=== PATIENT | male | born 1985 | race Caucasian/White ===

== ENCOUNTER 2022-08-30 14:02 | Outpatient (CLI) | payer BC, SELFPAY ==
[2022-08-30 17:42] LABS: Cholesterol* 221 mg/dL (90-199); Glucose* 87 mg/dL (60-115)
[2022-08-30 17:43] LABS: HDL Cholesterol* 44 mg/dL (>=40); LDL Cholesterol Calculated 126 mg/dL (<100); Triglycerides* 255 mg/dL (40-149)
== END 2022-08-30 14:03 | disposition home or self-care (01) ==
PROVIDERS: PCP Family Medicine; Visit Provider Family Medicine
DX: Z00.00 Encounter for general adult medical examination without abnormal findings (principal); Z13.1 Encounter for screening for diabetes mellitus; Z13.6 Encounter for screening for cardiovascular disorders
CPT/HCPCS: 80061; 82947

== ENCOUNTER 2024-08-28 18:40 | Emergency (ER) | payer BC, SELFPAY ==
[2024-08-28 18:43] VITALS: BP 119/76; PULSE 98; RESP 18; TEMP 40.5; O2SAT 97; BMI 21.9
[2024-08-28] MEDS: dexAMETHasone 10 MG/ML inj PO (19:32)
[2024-08-28 19:34] LABS: Basophils Percent Auto 0.1 % (0.0-3.0); Eosinophils Percent Auto 0.1 % (0.0-7.0); Hematocrit 36.9 % (37.0-53.0); Hemoglobin* 12.6 gm/dL (13.5-17.5); Immature Granulocytes Pct Auto 0.1 %; Lymphocytes Percent Auto 3.5 % (20-44); Mean Corpuscular HGB Conc 34 gm/dL (32-36); Mean Corpuscular Hemoglobin 31 pg (26-34); Mean Corpuscular Volume 89 fL (80-100); Monocytes Percent Auto 7.5 % (0.0-11.0); Neutrophils Percent Auto 88.7 % (42.0-72.0); Platelet Count* 157 K/uL (140-440); RDW Coefficient of Variation % 13.2 % (11.5-15.5); Red Blood Count 4.13 m/uL (4.30-5.90); White Blood Count* 14.45 K/uL (4.50-11.00)
[2024-08-28 19:38] LABS: Slide Review Reflex No
[2024-08-28 19:40] VITALS: TEMP 37.4
--- NOTE | 2024-08-28 19:53 | ED_ITS ---
HPI - General Adult General Date Seen: 08/28/24 Chief complaint: Sore Throat Stated complaint: fever for more than 48 hrs, tonsils whit and green Time Seen by Provider: 08/28/24 19:03 Source: patient Mode of arrival: ambulatory Limitations: no limitations History of Present Illness HPI narrative: Patient is a 39-year-old male presenting to emergency department for fever, sore throat has been going on for the past 2 days. He states he went to urgent care yesterday in test negative for strep, mono, COVID/flu. Symptoms are persisting and states fever has been constant since then. Have about a 3 hour span were for the fever broke. Is feeling very fatigued states his throat is very sore. States sometimes it feels like his throat was swelling up and it becomes hard to breathe. Currently is not feeling any dyspnea. Denies chest pain. Does not feel like he has shortness of breath within his lungs. Has been coughing up a dark mucus. Also states his notice some white spots on his tonsils. Denies lightheadedness, dizziness, abdominal pain. No other concerns noted. Does state he had a co-worker that had similar symptoms that lasted for a few days but then quickly got better after she was started on antibiotics. Unsure which she was diagnosed with. 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 Related Data Home Medications ?Medication ?Instructions ?Recorded ?Confirmed No Known Home Medications 08/28/24 08/28/24 Allergies Allergy/AdvReac Type Severity Reaction Status Date / Time hydromorphone Allergy Intermediate itchy Verified 08/28/24 18:48 amoxicillin Allergy Unknown nausea, Verified 08/28/24 18:48 diarrhea, vomiting dihydroergotamine Allergy Unknown dystonia Verified 08/28/24 18:48 Review of Systems Status of ROS: Reports: 10 or more systems reviewed and unremarkable except as noted in History and below PFSH PFS Surgical History S/P tendon repair ?Z98.890 - Other specified postprocedural states (ICD-10) S/P shoulder surgery ?Z98.890 - Other specified postprocedural states (ICD-10) Social History Smoking Status: Never smoker Do you use any of these nicotine containing products: None How often do you have a drink containing alcohol: never How often do you have six or more drinks on one occasion: Never AUDIT-C Alcohol total score: 0 Non-prescribed substance use: denies use Exam Narrative: Exam Narrative: Const: Well-nourished, Well-developed, in mild distress Eyes: PERRL, no conjunctival injection, and symmetrical lids HENT: Atraumatic external nose and ears. Moist mucous membranes. Tonsillar exudate noted was some swelling worse than left, uvula midline. No swelling noted under tongue. Neck: Symmetric, trachea midline, No thyromegaly. CVS: RRR, No murmurs or gallops. Peripheral pulses 2+ and equal in all extremities RESP: Unlabored respiratory effort. Clear to auscultation bilaterally. GI: Nontender/Nondistended, No rebound or guarding. MSK:Extremities w/o deformity, Normal Active ROM Skin: Warm, Dry. No rashes or lesions. Neuro: Normal Muscle tone, No focal neurological deficits. Psych: Awake, Alert, & Oriented x3. Appropriate mood and affect. Const: Vital Signs, click to edit/add: Vital Signs - 24 hr 08/28/24 18:43 08/28/24 19:40 Temperature 104.9 F H 99.4 F Pulse Rate [Right Pulse Oximeter] 98 Respiratory Rate 18 Blood Pressure [Ri ght Upper Arm] 119/76 Pulse Oximetry 97 Oxygen Delivery Me thod Room Air Course Vital Signs Vital signs: Initial Vital Signs Temperature 104.9 F H 08/28/24 18:43 Temperature Source Temporal Artery Scan 08/28/24 18:43 Pulse Rate 98 08/28/24 18:43 Pulse Rhythm Regular 08/28/24 18:43 Pulse Strength 3+ Normal 08/28/24 18:43 Respiratory Rate 18 08/28/24 18:43 Blood Pressure 119/76 08/28/24 18:43 Blood Pressure Mean 90 08/28/24 18:43 Blood Pressure Position Sitting 08/28/24 18:43 Pulse Oximetry 97 08/28/24 18:43 Oxygen Delivery Method Room Air 08/28/24 18:43 Vital Signs Temperature 104.9 F H 08/28/24 18:43 Pulse Rate 98 08/28/24 18:43 Respiratory Rate 18 08/28/24 18:43 Blood Pressure 119/76 08/28/24 18:43 Pulse Oximetry 97 08/28/24 18:43 Oxygen Delivery Method Room Air 08/28/24 18:43 Temperature 99.4 F 08/28/24 19:40 Pulse Rate 98 08/28/24 18:43 Respiratory Rate 18 08/28/24 18:43 Blood Pressure 119/76 08/28/24 18:43 Pulse Oximetry 97 08/28/24 18:43 Oxygen Delivery Method Room Air 08/28/24 18:43 Medications Administered Medications: Generic Name Dose Route Start Last Admin Trade Name Telma PRN Reason Stop Dose Admin Dexamethasone 10 mg 08/28/24 19:20 08/28/24 19:32 Dexamethasone 10 Mg/Ml Inj PO 08/28/24 19:21 10 mg ONCE ONE Administration Medical Decision Making MDM Narrative Medical decision making narrative: Patient is a 39-year-old male presenting for a fever and sore throat. No signs of [place] angina. Seems unlikely to have retropharyngeal abscess be does feel like he has some difficulty breathing with certain head positions. Do not see any obvious peritonsillar abscess by feels like his left is worse than his right. I did speak to will do a CT scan as based on his described symptoms I do have some concern for a neck space abscess. His for concern about the doing the CT scan considering the cost. After long conversation I am comfortable not doing CT scan as clinically he is not appear to have any signs of airway obstruction. Will give some decadron. Did consider chest x-ray due to him coughing up a dark mucus but seems unlikely to be pneumonia and he opted out of doing the chest x-ray. Will do CBC and BMP along with tick-borne panel a nd Lyme disease. 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 CBC came back elevated at 14.45. Hemoglobin is also slightly low at 12.6. Insert what his baseline is. He did take Tylenol prior to arrival his fever is down to 99.4. This does the make me have concern for some kind of bacterial infection. This time I plan on starting the doxycycline for possibly tick-borne disease and will follow-up with him in a couple days when we get the results of those tick-borne panels. BMP shows no concerning abnormalities. He will be placed on doxycycline and he is agreeable with this plan. Lab Data Labs: Lab Results 08/28/24 Range/Units 19:28 WBC 14.45 H (4.50-11.00) K/uL RBC 4.13 L (4.30-5.90) m/uL Hgb 12.6 L (13.5-17.5) gm/dL Hct 36.9 L (37.0-53.0) % MCV 89 (80-100) fL MCH 31 (26-34) pg MCHC 34 (32-36) gm/dL RDW Coeff of Sheila 13.2 (11.5-15.5) % Plt Count 157 (140-440) K/uL Neut % (Auto) 88.7 H (42.0-72.0) % Lymph % (Auto) 3.5 L (20-44) % [place] % (Auto) 7.5 (0.0-11.0) % Eos % (Auto) 0.1 (0.0-7.0) % Baso % (Auto) 0.1 (0.0-3.0) % Neut # (Auto) 12.80 H (1.7-7.0) K/uL Lymph # (Auto) 0.50 L (0.90-2.90) K/uL [place] # (Auto) 1.10 H (0.00-0.90) K/UL Eos # (Auto) 0.00 (0.00-0.50) K/uL Baso # (Auto) 0.00 (0.00-0.30) K/uL Abs Immat Gran (auto) 0.00 (0.00-0.30) K/uL Imm/Tot Granulo (auto) 0.1 % Sodium 135 (135-149) mmol/L Potassium 3.9 (3.6-5.1) mmol/L Chloride 100 (96-114) mmol/L Carbon Dioxide 24 (20-32) mmol/L Anion Gap 11 (7-15) mEq/L BUN 15 (5-24) mg/dL Creatinine 0.7 (0.5-1.5) mg/dL Estimated Creat Clear 153.88 Estimated GFR 122 ml/min Glucose 135 H (60-115) mg/dL Calcium 9.2 (8.4-10.6) mg/dL Discharge Plan Discharge Clinical Impression: Fever, unknown origin Patient Disposition: Home, Self-Care Condition: Stable Instructions: Fever in Adults (ED) Additional Instructions: I am unsure exactly was causing her fever but him concern for some tick borne disease. Will start him on antibiotics and will follow-up with you a couple days with results of your lab work. Return to emergency department for new or worsening symptoms Prescriptions: No Action No Known Home Medications Follow Up/Referrals: Saurabh Garcia MD [Primary Care Provider] - Stand Alone Forms: [facility] Info Instructions
[2024-08-28 20:02] LABS: Chloride* 100 mmol/L (96-114); Potassium* 3.9 mmol/L (3.6-5.1); Sodium* 135 mmol/L (135-149)
[2024-08-28 20:05] LABS: Anion Gap 11 mEq/L (7-15); Blood Urea Nitrogen* 15 mg/dL (5-24); Calcium* 9.2 mg/dL (8.4-10.6); Carbon Dioxide* 24 mmol/L (20-32); Creatinine* 0.7 mg/dL (0.5-1.5); Est. Creatinine Clearance* 153.88; Estimated Glomerular Filt Rate 122 ml/min; Glucose* 135 mg/dL (60-115)
[2024-08-30 15:03] LABS: Lyme ELISA Reflex 0.27 IV (<=0.90)
[2024-08-31 06:50] LABS: Anaplasma phagocyt PCR Not Detected; Babesia microti by PCR Not Detected; Babesia species by PCR Not Detected; Ehrlichia chaffeensis by PCR Not Detected; Ehrlichia ewingii/canis by PCR Not Detected; Ehrlichia muris-like by PCR Not Detected
== END 2024-08-28 20:22 | disposition home or self-care (01) ==
PROVIDERS: Emergency Provider Student in an Organized Health Care Education/Training Program; PCP Family Medicine
DX: R50.9 Fever, unspecified (principal)
CPT/HCPCS: 36415; 80048; 85025; 86618; 87468; 87469; 87484; 87798; 99283; 99284; J1100